=== PATIENT | female | born 1970 | race Caucasian/White ===

== ENCOUNTER 2016-09-15 20:22 | Emergency (ER) | payer OTHER, BC ==
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
[2016-09-15] MEDS ORDERED: IBUPROFEN 600 MG TABLET PO ONE (21:06)
--- NOTE | 2016-09-18 09:30 | RADIOLOGY REPORT ---
EXAM: LEFT ANKLE HISTORY: INJURY. TECHNIQUE: Three views of the left ankle were provided without comparison studies. FINDINGS: There is no radiographic evidence of a fracture or dislocation of the left ankle. No significant soft tissue abnormalities are visualized. IMPRESSION: NO RADIOGRAPHIC EVIDENCE OF AN ACUTE PROCESS INVOLVING THE LEFT ANKLE. JOB NUMBER: [id number] MTDD
--- NOTE | 2016-09-18 09:33 | RADIOLOGY REPORT ---
EXAM: LEFT KNEE, THREE VIEWS HISTORY: PATIENT HAS A HISTORY OF INJURY. TECHNIQUE: Three views of the left knee were provided without comparison studies. FINDINGS: There is no radiographic evidence of a fracture or dislocation of the left knee. No significant soft tissue abnormalities are visualized. Moderate suprapatellar bursal effusion is noted. IMPRESSION: MODERATE SUPRAPATELLAR BURSAL EFFUSION IS NOTED WITHOUT RADIOGRAPHIC EVIDENCE OF A FRACTURE OR DISLOCATION OF THE LEFT KNEE. IF THERE IS CLINICAL CONCERN FOR LIGAMENTOUS INJURY THEN AN MRI OF THE LEFT KNEE CAN BE OBTAINED FOR FURTHER EVALUATION. JOB NUMBER: [id number] [facility]
== END 2016-09-15 22:31 | disposition home or self-care (01) ==
LOC: ER 20:22
DX: S80.02XA Contusion of left knee, initial encounter (principal); S90.02XA Contusion of left ankle, initial encounter; V86.69XA Passenger of other special all-terrain or other off-road motor vehicle injured in nontraffic accident, initial encounter; Y92.007 Garden or yard of unspecified non-institutional (private) residence as the place of occurrence of the external cause
CPT/HCPCS: 99283; 99284

== ENCOUNTER 2017-04-20 16:22 | Emergency (ER) | payer OTHER, BC ==
--- NOTE | 2017-04-20 16:41 | Emergency Department Record ---
History of Present Illness - General Chief Complaint: Chest Pain Stated Complaint: CHEST PAINS/BLOOD CLOT ? SENT BY Time Seen by Provider: 04/20/17 16:33 Source: Patient Mode of Arrival: Ambulatory Limitations: No limitations - History of Present Illness Initial Comments: The patient is here due to CP for about one day. She describes it as an aching heaviness retrosternal that intermittently radiates to her back. She denies any SOB, IGNACIO, sweating, nausea, or lightheadedness. The patient denies any worsening pain with exertion or deep breaths or eating. She did see her PCP this afternoon and he did an EKG and sent her to the ER for a lung scan to make sure she has no clots. The patient has no cardiac risk factors. MD Complaint: Chest pain Onset/Timin -: Days(s) Onset: During rest Pain Location: Substernal, Left chest Pain Radiation: Back Severity: Moderate Severity scale (1-10): 4 Quality: Aching, Heaviness - Related Data Home Medications Medication Instructions Recorded Confirmed Last Taken Cholecalciferol (Vitamin D3) 2,000 unit PO DAILY 04/20/17 04/20/17 1 Day Ago [Vitamin D3] ~04/19/17 Allergies Allergy/AdvReac Type Severity Reaction Status Date / Time Penicillins [PENICILLINS] Allergy Unknown HIVES Verified 04/20/17 16:33 Travel Screening - Travel/Exposure Within Last 30 Days Have you traveled within the last 30 days?: No - Travel/Exposure Within Last Year Have you traveled outside the [place] in the last year?: No - Additonal Travel Details Have you been exposed to anyone with a communicable illness?: No - Travel Symptoms Symptom Screening: None Review of Systems Constitutional: Denies: Chills, Fever Eyes: Denies: Eye discharge ENT: Denies: Congestion Respiratory: Denies: Cough, Dyspnea Past Medical History - SOCIAL HISTORY Smoking Status: Never smoker Alcohol Use: None, Rare Drug Use: None - RESPIRATORY Hx Respiratory Disorders: No - CARDIOVASCULAR Hx Cardio Disorders: Yes Comment:: murmur - NEURO Hx Neuro Disorders: Yes Comment:: MS - GI Hx GI Disorders: No - Hx Genitourinary Disorders: No - ENDOCRINE Hx Endocrine Disorders: Yes Hx Thyroid Disease: Yes - MUSCULOSKELETAL Hx Musculoskeletal Disorders: No - PSYCH Hx Psych Problems: No - HEMATOLOGY/ONCOLOGY Hx Hematology/Oncology Disorders: No Family Medical History Any Significant Family History?: Yes Hx Heart Disease: Father, Grandparents Hx Stroke: Grandparents Physical Exam - General General Appearance: Alert, Oriented x3, Cooperative, No acute distress - Head Head exam: Atraumatic, Normocephalic, Normal inspection - Eye Eye exam: Normal appearance, PERRL - Neck Neck exam: Normal inspection, Full ROM. negative: Tenderness - Respiratory Respiratory exam: Normal lung sounds bilaterally. negative: Respiratory distress - Cardiovascular Cardiovascular Exam: Regular rate, Normal rhythm, Normal heart sounds. negative : Diastolic murmur, Systolic murmur - GI/Abdominal GI/Abdominal exam: Soft, Normal bowel sounds. negative: Tenderness - Extremities Extremities exam: Normal inspection, Full ROM, Normal capillary refill, Other ( Radial pulses equal and strong bilaterally.). negative: Calf tenderness, Pedal edema, Tenderness - Neurological Neurological exam: Alert. negative: Motor sensory deficit - Skin Skin exam: negative: Rash Course Vital Signs 04/20/17 16:25 Temperature 98.5 F Pulse Rate 74 Respiratory 16 Rate Blood Pressure 139/82 Pulse Ox 100 - Reevaluation(s) Reevaluation #1: The patient is resting very comfortably and denies any new pain or discomfort. I did explain to her that her workup is all neg. The Carafate did not take care of the patient's pain so we will try some IV Toradol. She denies any SOB, IGNACIO, or sweating and states the pain is very mild presently. 04/20/17 17:39 Reevaluation #2: The patient is resting comfortably and does feel better after the Toradol. She denies any trouble breathing, back pain, numbness, tingling, or weakness. I did explain to her that her test results are all WNL's. I strongly doubt any PE issues due to the fact the patient has no risk factors, is Wells Criteria: Low, and PERC Neg. Additionally her D-Dimer is neg. I also doubt any cardiac etiology due to the fact her pain is not exertional, EKG normal and lab work normal. I did discuss the issues with the patient and despite the fact her tests are normal, I am not clear as to the cause of the pain and I still did recommend a short stay hospital admission for a cardiac echo and stress test. The patient is reluctant to stay in the hospital and is refusing the workup and admission. I explained to the patient that the risks of leaving are that she could go home and have worsening pain, an SC, CVA, become disabled and even . The patient presently has proper decision making capacity and still elects to go home. She understands we cannot be held liable for NOT admitting her to the hospital and also understands she is to return for any worsening problems. I did also discuss the case with the patient's PCP Dr. Hoang and he will see the patient Sunday morning at 10:30 am and will facilitate a cardiac evaluation. 04/20/17 18:03 04/20/17 18:06 Medical Decision Making - Data Complexity MDM Data: Labs Ordered and/or Reviewed, X-Ray Ordered and/or Reviewed, EKG Ordered and/or Reviewed - Lab Data Result diagrams: 04/20/17 16:36 04/20/17 16:36 - EKG Data -: EKG Interpreted by Me EKG: No Acute Changes, Normal EKG - Radiology Data Radiology results: Report reviewed (CXR: Neg.) Disposition Disposition: Discharge Clinical Impression: Chest pain, atypical Disposition: Home, Self-Care Condition: (2) Stable Instructions: Chest Pain (ED) Additional Instructions: Please take an aspirin daily for the next 3 days and take your home pain medicines as needed. Please see your PCP on Sunday as planned in 3 days. Return to the ER for any worsening pain, change in character of the pain, any sweating or trouble breathing. Forms: Patient Portal Access Time of Disposition: 18:12 Quality - Quality Measures Quality Measures: N/A - Blood Pressure Screening View Details: Yes Does Patient Have Any of the Following: No Blood Pressure Classification: Pre-Hypertensive BP Reading Systolic Measurement: 130 Diastolic Measurement: 78 Screening for High Blood Pressure: < Normal BP, F/U Not Required > [G8783]
[2017-04-20] MEDS ORDERED: ASPIRIN 325 MG TABLET PO ONE (16:48)
[2017-04-20 17:02] LABS: BASO % 0.6 % (0-6); EOS % 3.2 % (0-6); GRAN % 33.9 % (47-80); HEMATOCRIT 39.5 % (35.0-47.0); HEMOGLOBIN 12.8 gm/dl (11.6-16.0); LYMPH % 46.9 % (16-45); MEAN CELL VOLUME 92.5 fl (81-97); MEAN CORPUSCULAR HGB CONC 32.4 g/dl (32-36); MEAN PLATELET VOLUME 11.3 fl (7.4-10.4); MONO % 15.4 % (0-9); PLATELET COUNT 323 K/uL (130-400); RED BLOOD COUNT 4.27 M/uL (3.80-5.40); RED CELL DISTRIBUTION WIDTH 13.4 % (11.5-14.5)
[2017-04-20] MEDS ORDERED: SUCRALFATE 1 G/10 ML UD PO ONE (17:03)
[2017-04-20 17:12] LABS: BLOOD UREA NITROGEN 11 mg/dL (6-20); CREATININE 0.5 mg/dL (0.5-0.9); EST GLOMERULAR FILTRATION RATE > 60 mL/min
[2017-04-20 17:14] LABS: INR 0.93; PARTIAL THROMBOPLASTIN TIME 26.5 SECONDS (24.5-39.1)
[2017-04-20 17:15] LABS: GLUCOSE,RANDOM 93 mg/dL (74-109)
[2017-04-20 17:18] LABS: CREATINE PHOSPHOKINASE 43 U/L (26-192)
[2017-04-20 17:21] LABS: CKMB 1.3 ng/mL (<3.77)
[2017-04-20 17:28] LABS: THYROID STIMULATING HORMONE 1.31 uIU/mL (0.270-4.20)
[2017-04-20] MEDS ORDERED: KETOROLAC 30 MG/ML VIAL IVP ONE (17:39)
--- NOTE | 2017-04-21 10:21 | RADIOLOGY REPORT ---
DATE: 04/20/2017. EXAM: TWO VIEWS OF THE CHEST. HISTORY: Chest pain. TECHNIQUE: Frontal and lateral views of the chest. COMPARISON: Prior chest dated 06/28/2007. FINDINGS: The heart size is normal. The lungs are clear. No pneumothorax. IMPRESSION: NEGATIVE CHEST. JOB NUMBER: [id number] MTDD
== END 2017-04-20 18:25 | disposition home or self-care (01) ==
LOC: ER 16:22
DX: R07.2 Precordial pain (principal)
CPT/HCPCS: 71020; 80048; 82550; 82553; 84443; 84484; 85025; 85379; 85610; 85730; 93005; 93010; 96374; 99284; J1885

== ENCOUNTER 2018-07-18 19:28 | Observation (INO) | payer OTHER ==
[2018-07-18] MEDS ORDERED: KETOROLAC 30 MG/ML VIAL IVP ONE (19:51)
[2018-07-18 20:07] LABS: HEMATOCRIT 41.4 % (35.0-47.0); HEMOGLOBIN 13.5 gm/dl (11.6-16.0); MEAN CELL VOLUME 91.2 fl (81-97); MEAN CORPUSCULAR HEMOGLOBIN 29.7 pg (27-33); MEAN CORPUSCULAR HGB CONC 32.6 g/dl (32-36); MEAN PLATELET VOLUME 10.8 fl (7.4-10.4); PLATELET COUNT 320 K/uL (130-400); RED BLOOD COUNT 4.54 M/uL (3.80-5.40); RED CELL DISTRIBUTION WIDTH 13.3 % (11.5-14.5); WHITE BLOOD COUNT W/O DIFF 5.8 K/uL (4.2-12.2)
[2018-07-18 20:19] LABS: BLOOD UREA NITROGEN 10 mg/dL (6-20)
[2018-07-18 20:20] LABS: CREATININE 0.7 mg/dL (0.5-0.9); EST GLOMERULAR FILTRATION RATE > 60 mL/min; TOTAL PROTEIN 7.8 g/dL (6.6-8.7)
[2018-07-18 20:22] LABS: GLUCOSE,RANDOM 114 mg/dL (74-109)
[2018-07-18 20:24] LABS: INFLUENZA A NEGATIVE (NEGATIVE); INFLUENZA B NEGATIVE (NEGATIVE)
[2018-07-18 20:25] LABS: ALB/GLOB RATIO 1.3 (1.1-1.8); ALBUMIN 4.4 g/dL (4.0-5.0); ALKALINE PHOSPHATASE 109 U/L (35-104); ALT/SGPT 22 U/L (<33); AST/SGOT 21 U/L (10.0-35.0)
[2018-07-18] MEDS ORDERED: PROMETHAZINE W/CODEINE 10ML UD PO ONE (21:01)
[2018-07-18] MEDS ORDERED: IPRATROPIUM/ALBUTEROL (0.5MG/3MG) NEB INH ONE (21:01)
--- NOTE | 2018-07-18 21:16 | Emergency Department Record ---
History of Present Illness - General Chief Complaint: Chest Pain Stated Complaint: CHEST PAIN Time Seen by Provider: 07/18/18 19:44 Source: Patient Mode of Arrival: Wheelchair Limitations: No limitations - History of Present Illness Initial Comments: pt has been sick since sunday with coughing and congestion. she went to [facility] this am and had a cxr and was started on a zpak. tonight she feels worse and has pain on the r side of her chest that gets worse w inspiration and coughing. cough is nonproductive MD Complaint: Chest pain Onset/Timin -: Days(s) Pain Location: Right chest Severity scale (1-10): 9 Quality: Sharp Consistency: Constant, Getting worse Improves With: Nothing Worsens With: Inspiration, Other Context: Recent illness Other Symptoms: Cough - Related Data Allergies Allergy/AdvReac Type Severity Reaction Status Date / Time Penicillins [PENICILLINS] Allergy Unknown HIVES Verified 07/18/18 19:33 Travel Screening - Travel/Exposure Within Last 30 Days Have you traveled within the last 30 days?: No - Travel Symptoms Symptom Screening: None Review of Systems Reviewed: No additional complaints except as noted below Constitutional: Reports: As per HPI. Denies: Chills, Fever, Malaise, Night sweats, Weakness, Weight change Eyes: Reports: As per HPI. Denies: Eye discharge, Eye pain, Photophobia, Vision change ENT: Reports: As per HPI, Congestion. Denies: Dental pain, Ear pain, Epistaxis , Hearing loss, Throat pain Respiratory: Reports: As per HPI, Cough, Dyspnea. Denies: Hemoptysis, Stridor, Wheezes Cardiovascular: Reports: As per HPI. Denies: Arrhythmia, Chest pain, Dyspnea on exertion, Edema, Murmurs, Orthopnea, Palpitations, Paroxysmal nocturnal dyspnea, Rheumatic Fever, Syncope Endocrine: Reports: As per HPI. Denies: Fatigue, Heat or cold intolerance, Polydipsia, Polyuria Gastrointestinal: Reports: As per HPI. Denies: Abdominal pain, Constipation, Diarrhea, Hematemesis, Hematochezia, Melena, Nausea, Vomiting Genitourinary: Reports: As per HPI. Denies: Abnormal menses, Discharge, Dyspareunia, Dysuria, Frequency, Hematuria, Incontinence, Retention, Urgency Musculoskeletal: Reports: As per HPI. Denies: Arthralgia, Back pain, Gout, Joint swelling, Myalgia, Neck pain Skin: Reports: As per HPI. Denies: Bruising, Change in color, Change in hair/ nails, Lesions, Pruritus, Rash Neurological: Reports: As per HPI. Denies: Abnormal gait, Confusion, Headache, Numbness, Paresthesias, Seizure, Tingling, Tremors, Vertigo, Weakness Psychiatric: Reports: As per HPI. Denies: Anxiety, Auditory hallucinations, Depression, Homicidal thoughts, Suicidal thoughts, Visual hallucinations Hematological/Lymphatic: Reports: As per HPI. Denies: Anemia, Blood Clots, Easy bleeding, Easy bruising, Swollen glands Past Medical History - SOCIAL HISTORY Smoking Status: Never smoker - RESPIRATORY Hx Respiratory Disorders: No - CARDIOVASCULAR Hx Cardio Disorders: Yes Comment:: murmur - NEURO Hx Neuro Disorders: Yes Comment:: MS - GI Hx GI Disorders: No - Hx Genitourinary Disorders: No - ENDOCRINE Hx Endocrine Disorders: Yes Hx Thyroid Disease: Yes - MUSCULOSKELETAL Hx Musculoskeletal Disorders: No - PSYCH Hx Psych Problems: No - HEMATOLOGY/ONCOLOGY Hx Hematology/Oncology Disorders: No Family Medical History Any Significant Family History?: Yes Hx Heart Disease: Father, Grandparents Hx Stroke: Grandparents Physical Exam - General General Appearance: Alert, Oriented x3, Cooperative, Mild distress - Head Head exam: Normal inspection - Eye Eye exam: Normal appearance, PERRL, EOMI Pupils: Normal accommodation - ENT ENT exam: Normal exam, Mucous membranes moist, Normal external ear exam, Normal orophraynx Ear exam: Normal external inspection. negative: External canal tenderness Nasal Exam: Normal inspection. negative: Discharge, Sinus tenderness Mouth exam: Normal external inspection, Tongue normal Teeth exam: Normal inspection. negative: Dental caries Throat exam: Normal inspection. negative: Tonsillar erythema, Tonsillar exudate - Neck Neck exam: Normal inspection, Full ROM. negative: Tenderness - Respiratory Respiratory exam: Normal lung sounds bilaterally. negative: Respiratory distress - Cardiovascular Cardiovascular Exam: Normal rhythm, Normal heart sounds, Tachycardia - GI/Abdominal GI/Abdominal exam: Soft, Normal bowel sounds. negative: Tenderness - Rectal Rectal exam: Deferred - exam: Deferred - Extremities Extremities exam: Normal inspection, Full ROM, Normal capillary refill. negative: Tenderness - Back Back exam: Reports: Normal inspection, Full ROM. Denies: Muscle spasm, Rash noted, Tenderness - Neurological Neurological exam: Alert, CN II-XII intact, Normal gait, Oriented X3 - Psychiatric Psychiatric exam: Normal affect, Normal mood - Skin Skin exam: Dry, Intact, Normal color, Warm Course Vital Signs 07/18/18 07/18/18 19:34 20:29 Temperature 99.0 F Pulse Rate 114 H Pulse Rate [ 94 H [facility] [employer] ] Respiratory 18 24 Rate Blood Pressure 136/90 Blood Pressure 123/82 [Left Arm] Pulse Ox 100 99 - Reevaluation(s) Reevaluation #1: 07/18/18 23:26 pt still does not feel well. pt intermittently desats to 89-90 Medical Decision Making - Lab Data Result diagrams: 07/18/18 19:45 07/18/18 19:45 Lab Results 07/18/18 07/18/18 07/18/18 Range/Units 19:45 19:45 19:45 WBC 5.8 (4.2-12.2) K/uL RBC 4.54 (3.80-5.40) M/uL Hgb 13.5 (11.6-16.0) gm/dl Hct 41.4 (35.0-47.0) % MCV 91.2 (81-97) fl MCH 29.7 (27-33) pg MCHC 32.6 (32-36) g/dl RDW 13.3 (11.5-14.5) % Plt Count 320 (130-400) K/uL MPV 10.8 H (7.4-10.4) fl Neutrophils % 50.0 (47-80) % Band Neutrophils % 0.0 (0-5) % Eosinophils % Not Reportable Basophils % Not Reportable Lymphocytes 30.0 (16-45) % Monocytes 19.0 H (0-9) % Basophils 0.0 (0-6) % Eosinophil Count 1.0 (0-6) % D-Dimer 0.47 (0-0.59) mg/L FEU Sodium 142 (136-145) mmol/L Potassium 3.7 (3.4-4.5) mmol/L Chloride 101 (98-107) mmol/L Carbon Dioxide 26.0 (22-29) mmol/L Anion Gap 15.0 (7-16) BUN 10 (6-20) mg/dL Creatinine 0.7 (0.5-0.9) mg/dL Estimated GFR > 60 mL/min Random Glucose 114 H (74-109) mg/dL Calcium 9.2 (8.6-10.0) mg/dL Total Bilirubin 0.20 (0.2-1.0) mg/dL AST 21 (10.0-35.0) U/L ALT 22 (<33) U/L Alkaline Phosphatase 109 H (35-104) U/L Troponin T < 0.010 (0-0.010) ng/mL Total Protein 7.8 (6.6-8.7) g/dL Albumin 4.4 (4.0-5.0) g/dL Globulin 3.4 (1.4-4.8) gm/dL Albumin/Globulin Ratio 1.3 (1.1-1.8) Influenza Type A Ag (NEGATIVE) Influenza Type B Ag (NEGATIVE) 07/18/18 07/18/18 Range/Units 19:45 19:52 WBC (4.2-12.2) K/uL RBC (3.80-5.40) M/uL Hgb (11.6-16.0) gm/dl Hct (35.0-47.0) % MCV (81-97) fl MCH (27-33) pg MCHC (32-36) g/dl RDW (11.5-14.5) % Plt Count (130-400) K/uL MPV (7.4-10.4) fl Neutrophils % (47-80) % Band Neutrophils % (0-5) % Eosinophils % Basophils % Lymphocytes (16-45) % Monocytes (0-9) % Basophils (0-6) % Eosinophil Count (0-6) % D-Dimer (0-0.59) mg/L FEU Sodium (136-145) mmol/L Potassium (3.4-4.5) mmol/L Chloride (98-107) mmol/L Carbon Dioxide (22-29) mmol/L Anion Gap (7-16) BUN (6-20) mg/dL Creatinine (0.5-0.9) mg/dL Estimated GFR mL/min Random Glucose (74-109) mg/dL Calcium (8.6-10.0) mg/dL Total Bilirubin (0.2-1.0) mg/dL AST (10.0-35.0) U/L ALT (<33) U/L Alkaline Phosphatase (35-104) U/L Troponin T Cancelled (0-0.010) ng/mL Total Protein (6.6-8.7) g/dL Albumin (4.0-5.0) g/dL Globulin (1.4-4.8) gm/dL Albumin/Globulin Ratio (1.1-1.8) Influenza Type A Ag Negative (NEGATIVE) Influenza Type B Ag Negative (NEGATIVE) Disposition Disposition: Admit Clinical Impression: Hypoxia, Pleurisy Reactive airway disease with acute exacerbation Qualifiers: Asthma severity: moderate Asthma persistence: persistent Qualified Code(s): J45.41 - Moderate persistent asthma with (acute) exacerbation Disposition: Still a Patient at [facility] Decision to Admit: Admit from ER Decision to Admit Date: 07/18/18 Decision to Admit Time: 23:28 Forms: Patient Portal Access Quality - Quality Measures Quality Measures: N/A - Blood Pressure Screening Does Patient Have Any of the Following: No Blood Pressure Classification: Hypertensive Reading Systolic Measurement: 136 Diastolic Measurement: 90 Screening for High Blood Pressure: < First Hypertensive BP, F/U Documented > [ G8950] First Hypertensive Follow-up Interventions: Follow-up with rescreen GT 1 day and LT 4 weeks.
[2018-07-18] MEDS ORDERED: METHYLPREDNISOLONE PF 125MG/VIAL IVP ONE (21:42)
[2018-07-18] MEDS ORDERED: MORPHINE SULFATE 10 MG/ML VIAL IVP ONE (23:25)
[2018-07-18] MEDS ORDERED: ALBUTEROL SULFATE (0.083%) 2.5 MG/3 ML NEB INH PRN (23:59)
[2018-07-18] MEDS ORDERED: [UNRECOGNIZED DRUG - OTHER] INJ SCH (23:59)
[2018-07-18] MEDS ORDERED: ALBUMIN INJ SCH (23:59)
[2018-07-18] MEDS ORDERED: MORPHINE SULFATE 10 MG/ML VIAL IVP PRN (23:59)
[2018-07-18] MEDS ORDERED: ONDANSETRON HCL IV 4 MG/2 ML VIAL IVP PRN (23:59)
[2018-07-18] MEDS ORDERED: ACETAMINOPHEN 500 MG TABLET PO PRN (23:59)
[2018-07-18] MEDS ORDERED: TEMAZEPAM 15 MG CAPSULE PO PRN (23:59)
[2018-07-19] MEDS: METHYLPREDNISOLONE PF 125MG/VIAL IVP SCH ×2 (00:13→06:40)
[2018-07-19] MEDS: AZITHROMYCIN 250 MG TABLET PO SCH ×2 (00:14→22:44)
[2018-07-19] MEDS: LEVOTHYROXINE SODIUM 75 MCG TABLET PO SCH (06:39)
[2018-07-19] MEDS ORDERED: HYDROCODONE/APAP 5/325MG TABLET PO ONE (06:48)
--- NOTE | 2018-07-19 08:51 | RADIOLOGY REPORT ---
EXAM: CHEST, TWO VIEWS HISTORY: COUGH AND CONGESTION, RIGHT SIDED CHEST PAIN. TECHNIQUE: PA and lateral views of the chest were obtained. Comparison: PA and lateral chest performed earlier today on 07/18/18 at 11:40 a.m. Prior study not as yet available within PACS. FINDINGS: The heart size is normal, unchanged. No definite acute infiltrate seen to have developed since earlier this morning. No pleural effusion or pneumothorax evident. IMPRESSION: THE CHEST CONTINUES TO APPEAR ESSENTIALLY NEGATIVE WITH NO APPRECIABLE CHANGE FROM EARLIER TODAY. J[facility]BER: [id number] [facility]
[2018-07-19] MEDS ORDERED: METHYLPREDNISOLONE SOD 40MG/VIAL IVP ONE (09:23)
[2018-07-19] MEDS ORDERED: KETOROLAC 30 MG/ML VIAL IVP ONE (09:25)
[2018-07-19] MEDS: HYDROCODONE/APAP 5/325MG TABLET PO PRN ×2 (09:52→22:44)
[2018-07-19] MEDS: ASPIRIN 325 MG TAB ENTERIC-COATED PO SCH (09:53)
--- NOTE | 2018-07-19 10:55 | History & Physical ---
History of Present Illness - Date of Service Date of Service for History & Physical: 07/19/18 - History of Present Illness Admitting Diagnosis: reactive airway with hypoxia and pleurisy History of Present Illness: Mrs. Dominique is a 47 year-old female who presented to the ED the evening of with complaint of feeling ill for 4 days with cough and congestion. She was seen in [facility] that morning, chest xray was negative, and she was prescribed a xpak. She reported feeling worse that night with pain on the right side of her chest that worsened with inspiration and cough. Cough is nonproductive. Her history includes: asthma as a child, MS, heart murmur, and hypothyroidism. In the ED, her vitals were: BP 136/90, HR 114, RR 18, 100% on room air, and T 99.0F. She did intermittently desat to 89-90%. Labs were unremarkable (CBC, CMP, d-dimer, neg troponins). Repeat chest xray was negative. Influenza was negative. She was admitted observation for reactive airway disease and right- sided pleurisy. 07/19/18: Pt. is resting in bed, she reports much improved work of breathing. She has remained above 92% on room air. She does c/o right-sided pain from her likely pleurisy. [place] 5/325 was administered. I spoke with pt. regarding the nature of her pleurisy and explained that steroid and scheduled NSAID will help more with underlying inflammatory pain. Plan to change steroid to PO and try ibuprofen. Continue albuterol and duo nebs while awake. Will plan to d/c home this afternoon if pt. continues to improve. PCP: Dr. Hoang Travel Screening - Travel/Exposure Within Last 30 Days Have you traveled within the last 30 days?: No - Travel/Exposure Within Last Year Have you traveled outside the [place] in the last year?: No - Additonal Travel Details Have you been exposed to anyone with a communicable illness?: Yes Exposure Details:: exposure to co-worker with RSV, pneumonia - Travel Symptoms Symptom Screening: Fever (Subjective), Fatigue, Chills Review of Systems Constitutional: Reports: As per HPI. Denies: Chills, Fever, Malaise, Night sweats, Weakness, Weight change Eyes: Reports: As per HPI. Denies: Eye discharge, Eye pain, Photophobia, Vision change ENT: Reports: As per HPI, Congestion. Denies: Dental pain, Ear pain, Epistaxis , Hearing loss, Throat pain Respiratory: Reports: As per HPI, Cough, Dyspnea. Denies: Hemoptysis, Stridor, Wheezes Cardiovascular: Reports: As per HPI. Denies: Arrhythmia, Chest pain, Dyspnea on exertion, Edema, Murmurs, Orthopnea, Palpitations, Paroxysmal nocturnal dyspnea, Rheumatic Fever, Syncope Endocrine: Reports: As per HPI. Denies: Fatigue, Heat or cold intolerance, Polydipsia, Polyuria Gastrointestinal: Reports: As per HPI. Denies: Abdominal pain, Constipation, Diarrhea, Hematemesis, Hematochezia, Melena, Nausea, Vomiting Genitourinary: Reports: As per HPI. Denies: Abnormal menses, Discharge, Dyspareunia, Dysuria, Frequency, Hematuria, Incontinence, Retention, Urgency Musculoskeletal: Reports: As per HPI. Denies: Arthralgia, Back pain, Gout, Joint swelling, Myalgia, Neck pain Skin: Reports: As per HPI. Denies: Bruising, Change in color, Change in hair/ nails, Lesions, Pruritus, Rash Neurological: Reports: As per HPI. Denies: Abnormal gait, Confusion, Headache, Numbness, Paresthesias, Seizure, Tingling, Tremors, Vertigo, Weakness Psychiatric: Reports: As per HPI. Denies: Anxiety, Auditory hallucinations, Depression, Homicidal thoughts, Suicidal thoughts, Visual hallucinations Hematological/Lymphatic: Reports: As per HPI. Denies: Anemia, Blood Clots, Easy bleeding, Easy bruising, Swollen glands Past Medical History - SOCIAL HISTORY Smoking Status: Never smoker Alcohol Use: Rare Drug Use: None - RESPIRATORY Hx Respiratory Disorders: Yes Hx Asthma: Yes (in childhood) - CARDIOVASCULAR Hx Cardio Disorders: Yes Comment:: murmur - NEURO Hx Neuro Disorders: Yes Comment:: Multiple Sclerosis- diagnosed 2006 - GI Hx GI Disorders: No - Hx Genitourinary Disorders: No - ENDOCRINE Hx Endocrine Disorders: Yes Hx Diabetes: No Hx Thyroid Disease: Yes - MUSCULOSKELETAL Hx Musculoskeletal Disorders: No - PSYCH Hx Psych Problems: No - HEMATOLOGY/ONCOLOGY Hx Hematology/Oncology Disorders: No Family Medical History Any Significant Family History?: Yes Hx Heart Disease: Father, Grandparents Hx Stroke: Grandparents H&P Meds/Allergies - Allergies Allergies: Allergies Allergy/AdvReac Type Severity Reaction Status Date / Time Penicillins [PENICILLINS] Allergy Unknown HIVES Verified 07/18/18 19:33 - Home Medications Home Medications Medication Instructions Recorded Confirmed Last Taken Albuterol Sulfate [Albuterol 2 inh IH Q4H PRN 07/18/18 07/18/18 07/18/18 Sulfate Hfa] Benzonatate [Tessalon] 2 cap PO Q8H PRN 07/18/18 07/18/18 Unknown Fluticasone Propionate [Flonase] 2 spray EACH NARES DAILY 07/18/18 07/18/18 Unknown - Active Medications Active Medications: Current Medications Acetaminophen (Tylenol 500mg Tab) 1,000 mg PO Q6H PRN PRN Reason: PAIN - MILD(1-4)/FEVER Hydrocodone Bitart/Acetaminophen ([place] 5mg/325mg) 1 each PO Q4H PRN PRN Reason: PAIN - MOD TO SEVERE (5-10) Last Admin: 07/19/18 09:52 Dose: 1 each Albuterol Sulfate (Albuterol Sulfate) 2.5 mg INH RESP.Q4H.WA PRN PRN Reason: DIFFICULTY IN BREATHING Albuterol/Ipratropium (Duoneb) 3 ml INH RESP.Q6H PRN PRN Reason: WHEEZING Aspirin (Ecotrin (Ec)) 325 mg PO DAILY [facility] Last Admin: 07/19/18 09:53 Dose: 325 mg Azithromycin (Zithromax) 250 mg PO QHS [facility] Last Admin: 07/19/18 00:14 Dose: Not Given Levothyroxine Sodium (Synthroid) 75 mcg PO DAILYTHY [facility] Last Admin: 07/19/18 06:39 Dose: 75 mcg Methylprednisolone Sodium Succinate (Solu-Medrol) 60 mg IVP Q8H [facility] Last Admin: 07/19/18 06:40 Dose: 60 mg Morphine Sulfate (Morphine Sulfate) 2 mg IVP Q4H PRN PRN Reason: PAIN - MILD TO MODERATE (1-7) Ondansetron HCl (Zofran) 4 mg IVP Q8H PRN PRN Reason: NAUSEA Temazepam (Restoril) 15 mg PO QHS PRN PRN Reason: INSOMNIA Physical Exam - Vital Signs Vital Signs: Vital Signs - Last 24 Hrs Temp Pulse Pulse Resp BP BP Pulse Ox 07/19/18 07:45 98.6 F 77 16 107/60 98 07/19/18 06:15 99 07/19/18 01:59 98.9 F 100 H 18 110/63 97 07/18/18 23:59 99.3 F 92 H 18 107/68 98 07/18/18 23:51 92 H 16 121/75 96 07/18/18 23:34 102 H 20 07/18/18 23:11 98.5 F 07/18/18 22:54 100 H 18 122/73 94 L 07/18/18 21:36 98 H 16 95 07/18/18 21:35 94 H 26 H 89 L 07/18/18 21:13 108 H 18 113/79 98 07/18/18 21:06 100 H 18 98 07/18/18 20:29 94 H 24 123/82 99 07/18/18 19:34 99.0 F 114 H 18 136/90 100 - General General Appearance: Alert, Oriented x3, Cooperative, No acute distress Limitations: No limitations - Head Head exam: Normal inspection - Eye Eye exam: Normal appearance, PERRL, EOMI Pupils: Normal accommodation - ENT ENT exam: Normal exam, Mucous membranes moist, Normal external ear exam, Normal orophraynx Ear exam: Normal external inspection. negative: External canal tenderness Nasal Exam: Normal inspection. negative: Discharge, Sinus tenderness Mouth exam: Normal external inspection, Tongue normal Teeth exam: Normal inspection. negative: Dental caries Throat exam: Normal inspection. negative: Tonsillar erythema, Tonsillar exudate - Neck Neck exam: Normal inspection, Full ROM. negative: Tenderness - Respiratory Respiratory exam: Normal lung sounds bilaterally. negative: Respiratory distress - Cardiovascular Cardiovascular Exam: Normal rhythm, Normal heart sounds, Tachycardia - GI/Abdominal GI/Abdominal exam: Soft, Normal bowel sounds. negative: Tenderness - Rectal Rectal exam: Deferred - exam: Deferred - Extremities Extremities exam: Normal inspection, Full ROM, Normal capillary refill. negative: Tenderness - Back Back exam: Reports: Normal inspection, Full ROM. Denies: Muscle spasm, Rash noted, Tenderness - Neurological Neurological exam: Alert, CN II-XII intact, Normal gait, Oriented X3 - Psychiatric Psychiatric exam: Normal affect, Normal mood - Skin Skin exam: Dry, Intact, Normal color, Warm Results - Labs Result Diagrams: 07/18/18 19:45 02/28/19 19:45 Labs Last 24 Hours: Laboratory Results - last 24 hr 07/18/18 07/18/18 07/18/18 19:45 19:45 19:45 WBC 5.8 RBC 4.54 Hgb 13.5 Hct 41.4 MCV 91.2 MCH 29.7 MCHC 32.6 RDW 13.3 Plt Count 320 MPV 10.8 H Neutrophils % 50.0 Band Neutrophils % 0.0 Eosinophils % Not Reportable Basophils % Not Reportable Lymphocytes 30.0 Monocytes 19.0 H Basophils 0.0 Eosinophil Count 1.0 D-Dimer 0.47 Sodium 142 Potassium 3.7 Chloride 101 Carbon Dioxide 26.0 Anion Gap 15.0 BUN 10 Creatinine 0.7 Estimated GFR > 60 Random Glucose 114 H Calcium 9.2 Total Bilirubin 0.20 AST 21 ALT 22 Alkaline Phosphatase 109 H CK-MB (CK-2) Troponin T < 0.010 Total Protein 7.8 Albumin 4.4 Globulin 3.4 Albumin/Globulin Ratio 1.3 Influenza Type A Ag Influenza Type B Ag 07/18/18 07/18/18 07/19/18 19:45 19:52 06:25 WBC RBC Hgb Hct MCV MCH MCHC RDW Plt Count MPV Neutrophils % Band Neutrophils % Eosinophils % Basophils % Lymphocytes Monocytes Basophils Eosinophil Count D-Dimer Sodium Potassium Chloride Carbon Dioxide Anion Gap BUN Creatinine Estimated GFR Random Glucose Calcium Total Bilirubin AST ALT Alkaline Phosphatase CK-MB (CK-2) Troponin T Cancelled < 0.010 Total Protein Albumin Globulin Albumin/Globulin Ratio Influenza Type A Ag Negative Influenza Type B Ag Negative 07/19/18 06:25 WBC RBC Hgb Hct MCV MCH MCHC RDW Plt Count MPV Neutrophils % Band Neutrophils % Eosinophils % Basophils % Lymphocytes Monocytes Basophils Eosinophil Count D-Dimer Sodium Potassium Chloride Carbon Dioxide Anion Gap BUN Creatinine Estimated GFR Random Glucose Calcium Total Bilirubin AST ALT Alkaline Phosphatase CK-MB (CK-2) 1.1 Troponin T Total Protein Albumin Globulin Albumin/Globulin Ratio Influenza Type A Ag Influenza Type B Ag - Imaging and Cardiology Chest x-ray Status: Report reviewed (negative) VTE H&P Assessment - Risk for VTE Risk for VTE: Yes Risk Level: Low Risk Assessment Date: 07/19/18 Risk Assessment Time: 10:57 VTE Orders Placed or Will Be Placed: Yes Plan - Detailed Diagnosis and Plan (1) Reactive airway disease with acute exacerbation Current Visit: Yes Status: Acute Qualifiers: Asthma severity: moderate Asthma persistence: persistent Qualified Code(s ): J45.41 - Moderate persistent asthma with (acute) exacerbation Base Code: J45.901 - UNSPECIFIED ASTHMA WITH (ACUTE) EXACERBATION Comment: 06/08: -Pt. has remained above 92% on room air -Continue duo nebs q4h and albuterol nebs q4h while awake -Will change iv solumedrol to prednisone today (2) Pleurisy Current Visit: Yes Status: Acute Base Code: R09.1 - PLEURISY Comment: 07/19: -Right-sides pleurisy -CXR normal -Continue IV solumedrol 60mg q8h and toradol 30mg IV administered, will change to PO today -[place] 5/325mg q4h prn severe pain (3) At risk for deep venous thrombosis Current Visit: Yes Status: Acute Base Code: Z91.89 - OTH PERSONAL RISK FACTORS, NOT ELSEWHERE CLASSIFIED Comment: 07/19/18: -At low risk for DVT -Will order lovenox 40mg sc if hospitalization greater than 24 hours (4) Full code status Current Visit: Yes Status: Acute Base Code: Z78.9 - OTHER SPECIFIED HEALTH STATUS Comment: 07/19/18: -Pt. is a full code
[2018-07-19] MEDS: IPRATROPIUM/ALBUTEROL (0.5MG/3MG) NEB INH PRN ×2 (11:35→19:02)
[2018-07-19] MEDS: PREDNISONE 20 MG TAB PO SCH ×2 (12:42→17:04)
[2018-07-19] MEDS: BENZONATATE 100 MG CAPSULE PO PRN (17:04)
[2018-07-19] MEDS: GUAIFENESIN 600 MG TABCR PO PRN ×2 (17:05→22:45)
[2018-07-19] MEDS: IBUPROFEN 600 MG TABLET PO PRN (20:07)
[2018-07-20] MEDS: BENZONATATE 100 MG CAPSULE PO PRN (00:10)
[2018-07-20] MEDS: IBUPROFEN 600 MG TABLET PO PRN (06:36)
[2018-07-20] MEDS: HYDROCODONE/APAP 5/325MG TABLET PO PRN ×3 (06:36→14:03)
[2018-07-20] MEDS: LEVOTHYROXINE SODIUM 75 MCG TABLET PO SCH (06:36)
[2018-07-20] MEDS: GUAIFENESIN 600 MG TABCR PO PRN (06:36)
[2018-07-20] MEDS: PREDNISONE 20 MG TAB PO SCH (08:03)
[2018-07-20] MEDS: ASPIRIN 325 MG TAB ENTERIC-COATED PO SCH (09:40)
[2018-07-20 13:18] LABS: BASO % 0.2 % (0-6); GRAN % 73.3 % (47-80); HEMATOCRIT 37.5 % (35.0-47.0); HEMOGLOBIN 11.7 gm/dl (11.6-16.0); LYMPH % 15.5 % (16-45); MEAN CELL VOLUME 94.2 fl (81-97); MEAN CORPUSCULAR HEMOGLOBIN 29.4 pg (27-33); MEAN CORPUSCULAR HGB CONC 31.2 g/dl (32-36); MEAN PLATELET VOLUME 11.3 fl (7.4-10.4); PLATELET COUNT 313 K/uL (130-400); RED BLOOD COUNT 3.98 M/uL (3.80-5.40); RED CELL DISTRIBUTION WIDTH 13.7 % (11.5-14.5); WHITE BLOOD COUNT W/O DIFF 12.5 K/uL (4.2-12.2)
--- NOTE | 2018-07-20 13:40 | Discharge Summary ---
Providers Discharge Summary Date: 07/20/18 Date of admission: 07/18/18 23:51 Expected Date of Discharge: 07/20/18 Attending physician: ITA OCHOA Primary care physician: LEANDRA GUZMÁN D.O. Physical Exam - Vital Signs Vital Signs: Vital Signs - Last 24 Hrs Temp Pulse Pulse Resp BP Pulse Ox 07/20/18 08:00 97.9 F 70 16 105/64 96 07/20/18 06:57 97.8 F 76 110/68 98 07/20/18 06:20 95 07/19/18 23:02 82 18 97 07/19/18 22:30 89 98 07/19/18 19:02 92 H 18 07/19/18 18:55 98.0 F 82 16 124/70 99 07/19/18 15:00 98.1 F 75 17 120/67 95 - General General Appearance: Alert, Oriented x3, Cooperative, No acute distress Limitations: No limitations - Head Head exam: Normal inspection - Eye Eye exam: Normal appearance, PERRL, EOMI Pupils: Normal accommodation - ENT ENT exam: Normal exam, Mucous membranes moist, Normal external ear exam, Normal orophraynx Ear exam: Normal external inspection. negative: External canal tenderness Nasal Exam: Normal inspection. negative: Discharge, Sinus tenderness Mouth exam: Normal external inspection, Tongue normal Teeth exam: Normal inspection. negative: Dental caries Throat exam: Normal inspection. negative: Tonsillar erythema, Tonsillar exudate - Neck Neck exam: Normal inspection, Full ROM. negative: Tenderness - Respiratory Respiratory exam: Normal lung sounds bilaterally. negative: Respiratory distress - Cardiovascular Cardiovascular Exam: Normal rhythm, Normal heart sounds, Tachycardia - GI/Abdominal GI/Abdominal exam: Soft, Normal bowel sounds. negative: Tenderness - Rectal Rectal exam: Deferred - exam: Deferred - Extremities Extremities exam: Normal inspection, Full ROM, Normal capillary refill. negative: Tenderness - Back Back exam: Reports: Normal inspection, Full ROM. Denies: Muscle spasm, Rash noted, Tenderness - Neurological Neurological exam: Alert, CN II-XII intact, Normal gait, Oriented X3 - Psychiatric Psychiatric exam: Normal affect, Normal mood - Skin Skin exam: Dry, Intact, Normal color, Warm Hospitalization - Hospitalization Admission Diagnosis: reactive airway with hypoxia and pleurisy - Problem List/Discharge Diagnosis (1) Reactive airway disease with acute exacerbation Current Visit: Yes Status: Acute Discharge Diagnosis: Asthma severity: moderate Asthma persistence: persistent Qualified Code(s ): J45.41 - Moderate persistent asthma with (acute) exacerbation Base Code: J45.901 - UNSPECIFIED ASTHMA WITH (ACUTE) EXACERBATION Comment: 07/09: -Pt. has remained above 96% on room air -Cough has improved in frequency -LS clear (2) Pleurisy Current Visit: Yes Status: Acute Base Code: R09.1 - PLEURISY Comment: 07/20: -Right-sided pleurisy -CXR normal -Continue prednisone 20mg bid, ibuprofen 800mg tid, azithromycin 250mg for 3 more days -[place] 5/325mg q4h prn severe pain (3) At risk for deep venous thrombosis Current Visit: Yes Status: Acute Base Code: Z91.89 - OTH PERSONAL RISK FACTORS, NOT ELSEWHERE CLASSIFIED Comment: 07/20/18: -At low risk for DVT (4) Full code status Current Visit: Yes Status: Acute Base Code: Z78.9 - OTHER SPECIFIED HEALTH STATUS Comment: 07/20/18: -Pt. is a full code - Hospitalization Course Disposition: Home, Self-Care Hospital Course: Mrs. Dominique is a 47 year-old female who presented to the ED the evening of with complaint of feeling ill for 4 days with cough and congestion. She was seen in [facility] that morning, chest xray was negative, and she was prescribed a xpak. She reported feeling worse that night with pain on the right side of her chest that worsened with inspiration and cough. Cough is nonproductive. Her history includes: asthma as a child, MS, heart murmur, and hypothyroidism. In the ED, her vitals were: BP 136/90, HR 114, RR 18, 100% on room air, and T 99.0F. She did intermittently desat to 89-90%. Labs were unremarkable (CBC, CMP, d-dimer, neg troponins). Repeat chest xray was negative. Influenza was negative. She was admitted observation for reactive airway disease and right- sided pleurisy. 07/19/18: Pt. is resting in bed, she reports much improved work of breathing. She has remained above 92% on room air. She does c/o right-sided pain from her likely pleurisy. [place] 5/325 was administered. I spoke with pt. regarding the nature of her pleurisy and explained that steroid and scheduled NSAID will help more with underlying inflammatory pain. Plan to change steroid to PO and try ibuprofen. Continue albuterol and duo nebs while awake. Will plan to d/c home this afternoon if pt. continues to improve. 07/20/18: Pt. is sitting up in bed, she reports slightly improved cough, however , pain now spread to left chest. Repeat EKG this am showed slight change- abnormal r-wave progression, early transition. Repeat EKG normal, intervals normal. Repeat troponin negative. Pt. reassured on findings. Will discharge home today. Continue azithromycin 250mg for 3 more days, prednisone 20mg bid for 3 more days, ibuprofen 600mg tid, and will provided norco 5/325mg for severe pain (3 days only). Recommended to continue albuterol hfa 1-2 puffs q4 hours, mucinex 1200mg bid for 3 days, and otc antihistamine and zantac. Instructed pt to f/u with her PCP in 3-5 days and return to the ED if symptoms worsen. PCP: Dr. 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 to return to normal level of activity) Discharge Medications - Discharge Medications Prescriptions: Guaifenesin [Mucinex] 1,200 mg PO BID PRN #20 tabcr PRN Reason: chest congestion Hydrocodone/APAP 5/325Mg [[place] 5Mg/325Mg] 1 each PO Q4H PRN #12 tab PRN Reason: Pain - Mod To Severe (5-10) Ibuprofen [Motrin 600Mg] 600 mg PO Q8H PRN #40 tablet PRN Reason: pain Prednisone [Prednisone 20Mg] 20 mg PO BIDWM #6 tab Home Medications: Ambulatory Orders Interferon Beta-1A/Albumin [Rebif 44 Mcg/0.5 ml Syringe] 44 mg INJ SUTUTH [Last Taken 07/14/18] Levothyroxine Sodium [Synthroid] 75 mcg PO DAILY 09/15/16 [Last Taken 1 Day Ago ~04/19/17] Albuterol Sulfate [Albuterol Sulfate Hfa] 2 inh IH Q4H PRN 07/18/18 [Last Taken 07/18/18] Benzonatate [Tessalon Perles] 2 cap PO Q8H PRN 07/18/18 [Last Taken Unknown] Fluticasone Propionate [Flonase] 2 spray EACH NARES DAILY 07/18/18 [Last Taken Unknown] Guaifenesin [Mucinex] 1,200 mg PO BID PRN #20 tabcr 07/20/18 [Last Taken Unknown ] Hydrocodone/APAP 5/325Mg [[place] 5Mg/325Mg] 1 each PO Q4H PRN #12 tab 07/20/18 [ Last Taken Unknown] Ibuprofen [Motrin 600Mg] 600 mg PO Q8H PRN #40 tablet 07/20/18 [Last Taken Unknown] Prednisone [Prednisone 20Mg] 20 mg PO BIDWM #6 tab 07/20/18 [Last Taken Unknown] Discharge Plan - Discharge Instructions Activity at Discharge: Increase Activity as Tolerated Diet at Discharge: Regular Diet Additional Instructions: Resume flonase- 1 spray per nostril twice daily Resume albuterol inhaler- 1-2 puffs every 4 hours for cough/chest tightness Resume zyrtec-D for congestion/stuffiness Start prednisone 20mg twice daily with meals (breakfast and lunch). First dose tomorrow morning Resume azithromycin 250mg (antibiotic). Take a dose tonight. Take ibuprofen 600mg every 8 hours for pain. Take with food. Use zantac 75mg daily for GERD symptoms (also will help to protect your stomach with steroid use) Use norco 5-235mg every 4 hours as needed for severe pain. Do not drive while taking. Follow up with your PCP in 3-5 days Return to the ED if your symptoms worsen, or for any chest pain. Quality Measures - Quality Measures Quality Measures: Documentation of Current Medications in Medical Record, Screening for High Blood Pressure and F/U Documented - Current Medications Quality Measure: Measure #130: Documentation of Current Medications Documentation of Current Medications: <Current Medications Documented/Reviewed> [G8427] - Blood Pressure Screening Quality Measure: Screening for High Blood Pressure and Follow-Up Documented Does Patient Have Any of the Following: No Blood Pressure Classification: Hypertensive Reading Systolic Measurement: 136 Diastolic Measurement: 90 Screening for High Blood Pressure: < Pre-Hypertensive BP, F/U Documented > [ G8950] Pre-Hypertensive Follow-up Interventions: Follow-up with rescreen every year. - Elder Abuse Suspicion Index EASI Reference Information: Woody RODRIGUEZ, Greta C, Mishel D, Christopher Bradford.Development and validation of a tool to assist physicians identification of elder abuse: The Elder Abuse Suspicion Index (EASI ). Journal of Elder Abuse and Neglect, 2008; 20 (3): 276-300.
== END 2018-07-20 14:30 | disposition home or self-care (01) ==
LOC: ER 19:28 → MEDSURG 23:51
PROVIDERS: ADMIT Internal Medicine; ATTEND Internal Medicine
DX: J45.41 Moderate persistent asthma with (acute) exacerbation (principal); R09.1 Pleurisy; R09.02 Hypoxemia; G35 Multiple sclerosis; R01.1 Cardiac murmur, unspecified
CPT/HCPCS: 99285 ×2; 96374; 96375; 85025; 82553; 80053; 87400; 84484 ×3; 85379; 85027; 71046; 94640 ×2; 94761; 93005 ×3; 93010; 94760; G0378 ×3; J1885 ×2; J7512 ×2; J2270; 99217; 99220; J2930; J7613

== ENCOUNTER 2018-08-23 18:31 | Emergency (ER) | payer OTHER ==
[2018-08-23] MEDS ORDERED: ONDANSETRON HCL IV 4 MG/2 ML VIAL IVP ONE (18:40)
[2018-08-23] MEDS ORDERED: HYOSCYAMINE SULFATE ODT 0.125 MG TAB.SUBL SL ONE (18:40)
[2018-08-23] MEDS ORDERED: KETOROLAC 30 MG/ML VIAL IVP ONE (18:40)
[2018-08-23] MEDS ORDERED: 0.9 % SODIUM CHLORIDE 1000ML 1,000 ML IV SCH ×2 (18:45→19:30)
--- NOTE | 2018-08-23 18:47 | Emergency Department Record ---
History of Present Illness - General Chief complaint: Nausea, Vomiting, Diarrhea Stated complaint: VOMITING /DIARRHEA Time Seen by Provider: 08/23/18 18:40 Source: Patient Mode of Arrival: Ambulatory Limitations: No limitations - History of Present Illness Initial comments: 47 yo female presents to ED for evaluation of back pain, nausea, vomiting, and loose stools for that began this morning. Patient reports fevers/chills, denies cough symptoms. Patient denies recent ill contacts or change in her diet. Patient reports a history of MS as well as hysterectomy, denies health problems at her baseline. MD complaint: Diarrhea, Nausea, Vomiting Onset/Timin -: Days(s) Associated Abdominal Pain: Yes Location: Diffuse Severity: Moderate Quality: Cramping Consistency: Intermittent Improves with: None Worsens with: None Associated Symptoms: Fever/chills - Related Data Previous Rx's Medication Instructions Recorded Guaifenesin [Mucinex] 1,200 mg PO BID PRN #20 tabcr 07/20/18 Hydrocodone/APAP 5/325Mg [[place] 1 each PO Q4H PRN #12 tab 07/20/18 5Mg/325Mg] Ibuprofen [Motrin 600Mg] 600 mg PO Q8H PRN #40 tablet 07/20/18 Prednisone [Prednisone 20Mg] 20 mg PO BIDWM #6 tab 07/20/18 Hyoscyamine Sulfate [Levsin-Sl] 0.25 mg SL Q8H PRN #15 tab.subl 08/23/18 Ondansetron [Zofran Odt] 4 mg PO Q8H PRN #15 tab.rapdis 08/23/18 Allergies Allergy/AdvReac Type Severity Reaction Status Date / Time Penicillins [PENICILLINS] Allergy Unknown HIVES Verified 07/18/18 19:33 Review of Systems Constitutional: Reports: Chills, Fever, Malaise, Weakness. Denies: Night sweats Eyes: Denies: Eye discharge, Eye pain ENT: Denies: Congestion, Ear pain, Epistaxis Respiratory: Denies: Cough, Dyspnea Cardiovascular: Denies: Chest pain, Dyspnea on exertion Endocrine: Denies: Fatigue, Heat or cold intolerance Gastrointestinal: Reports: Abdominal pain, Diarrhea, Nausea, Vomiting Genitourinary: Denies: Incontinence, Retention Musculoskeletal: Reports: Back pain. Denies: Arthralgia, Gout Skin: Denies: Bruising, Change in color Neurological: Denies: Abnormal gait, Confusion, Headache, Tingling, Tremors Psychiatric: Denies: Anxiety Hematological/Lymphatic: Denies: Anemia, Blood Clots Past Medical History - SOCIAL HISTORY Smoking Status: Never smoker Drug Use: None - RESPIRATORY Hx Respiratory Disorders: Yes Hx Asthma: Yes (in childhood) - CARDIOVASCULAR Hx Cardio Disorders: Yes Comment:: murmur - NEURO Hx Neuro Disorders: Yes Comment:: Multiple Sclerosis- diagnosed 2006 - GI Hx GI Disorders: No - Hx Genitourinary Disorders: No - ENDOCRINE Hx Endocrine Disorders: Yes Hx Diabetes: No Hx Thyroid Disease: Yes - MUSCULOSKELETAL Hx Musculoskeletal Disorders: No - PSYCH Hx Psych Problems: No - HEMATOLOGY/ONCOLOGY Hx Hematology/Oncology Disorders: No Family Medical History Hx Heart Disease: Father, Grandparents Hx Stroke: Grandparents Physical Exam - General General Appearance: Alert, Oriented x3, Cooperative, Moderate distress Limitations: No limitations - Head Head exam: Atraumatic, Normocephalic, Normal inspection Head exam detail: negative: Abrasion, Contusion, Galindo's sign, General tenderness, Hematoma, Laceration - Eye Eye exam: Normal appearance. negative: Conjunctival injection, Periorbital swelling, Periorbital tenderness, Scleral icterus - ENT Ear exam: negative: Auricular hematoma, Auricular trauma Nasal Exam: negative: Active bleeding, Discharge, Dried blood, Sinus tenderness Mouth exam: negative: Drooling, Laceration, Tongue elevation - Neck Neck exam: Normal inspection. negative: Meningismus, Tenderness - Respiratory Respiratory exam: Normal lung sounds bilaterally. negative: Respiratory distress, Rhonchi, Stridor, Wheezes - Cardiovascular Cardiovascular Exam: Regular rate, Normal rhythm, Normal heart sounds - GI/Abdominal GI/Abdominal exam: Soft, Other (Benign abdominal examination, no rebound, guarding, or peritoneal signs.). negative: Rebound, Rigid, Tenderness - Rectal Rectal exam: Deferred - exam: Deferred - Extremities Extremities exam: Normal inspection. negative: Pedal edema, Tenderness - Back Back exam: Denies: CVA tenderness (R), CVA tenderness (L) - Neurological Neurological exam: Alert, Normal gait, Oriented X3 - Psychiatric Psychiatric exam: Normal affect, Normal mood - Skin Skin exam: Normal color. negative: Abrasion Type of lesion: negative: abrasion Course - Reevaluation(s) Reevaluation #1: 08/23/18 19:17 Laboratory studies were reviewed and are grossly unremarkable for an acute process. UA pending at this time. Reevaluation #2: 08/23/18 20:14 UA was reviewed and appears negative for infection. Patient is tolerating PO and reports that she is feeling much better. repeat abdominal examination continues to be benign. Patient appears stable for discharge at this time with treatment for her nausea/ vomiting and abdominal cramping. Medical Decision Making - Lab Data Result diagrams: 08/23/18 18:40 08/23/18 18:59 Disposition Disposition: Discharge Clinical Impression: Abdominal cramping Nausea & vomiting Qualifiers: Vomiting type: unspecified Vomiting Intractability: non-intractable Qualified Code(s): R11.2 - Nausea with vomiting, unspecified Disposition: Home, Self-Care Condition: (2) Stable Instructions: Acute Nausea and Vomiting (ED) Additional Instructions: Return to ED if your symptoms worsen or if you have any concerns. Levsin, Zofran as directed. Follow-up with your family doctor in 3-5 days as directed. Prescriptions: Hyoscyamine Sulfate [Levsin-Sl] 0.25 mg SL Q8H PRN #15 tab.subl PRN Reason: Abdominal Pain Ondansetron [Zofran Odt] 4 mg PO Q8H PRN #15 tab.rapdis PRN Reason: Nausea/Vomiting Forms: Patient Portal Access Time of Disposition: 20:16 Quality - Quality Measures Quality Measures: N/A - Blood Pressure Screening Does Patient Have Any of the Following: No Blood Pressure Classification: Pre-Hypertensive BP Reading Systolic Measurement: 122 Diastolic Measurement: 76 Screening for High Blood Pressure: < Pre-Hypertensive BP, F/U Documented > [ [id number]] Pre-Hypertensive Follow-up Interventions: Referral to alternative/primary care provider.
[2018-08-23 18:55] LABS: BASO % 0.1 % (0-6); EOS % 0.2 % (0-6); HEMATOCRIT 41.8 % (35.0-47.0); HEMOGLOBIN 13.7 gm/dl (11.6-16.0); LYMPH % 9.3 % (16-45); MEAN CELL VOLUME 90.9 fl (81-97); MEAN CORPUSCULAR HEMOGLOBIN 29.8 pg (27-33); MEAN CORPUSCULAR HGB CONC 32.8 g/dl (32-36); MEAN PLATELET VOLUME 10.9 fl (7.4-10.4); MONO % 5.1 % (0-9); PLATELET COUNT 326 K/uL (130-400); RED CELL DISTRIBUTION WIDTH 13.8 % (11.5-14.5); WHITE BLOOD COUNT W/O DIFF 8.3 K/uL (4.2-12.2)
[2018-08-23 19:08] LABS: BLOOD UREA NITROGEN 11 mg/dL (6-20); CREATININE 0.5 mg/dL (0.5-0.9); EST GLOMERULAR FILTRATION RATE > 60 mL/min
[2018-08-23 19:09] LABS: LIPASE 27 U/L (13-60); TOTAL PROTEIN 7.3 g/dL (6.6-8.7)
[2018-08-23 19:10] LABS: INFLUENZA A NEGATIVE (NEGATIVE); INFLUENZA B NEGATIVE (NEGATIVE)
[2018-08-23 19:11] LABS: GLUCOSE,RANDOM 131 mg/dL (74-109)
[2018-08-23 19:14] LABS: ALB/GLOB RATIO 1.5 (1.1-1.8); ALBUMIN 4.4 g/dL (4.0-5.0); ALKALINE PHOSPHATASE 105 U/L (35-104); ALT/SGPT 27 U/L (<33); AST/SGOT 21 U/L (10.0-35.0)
[2018-08-23 19:53] LABS: URINE APPEARANCE CLEAR; URINE BILIRUBIN NEGATIVE (NEGATIVE); URINE BLOOD NEGATIVE (NEGATIVE); URINE COLOR YELLOW; URINE GLUCOSE (UA) NEGATIVE (NEGATIVE); URINE KETONE 15 mg/dL (NEGATIVE); URINE LEUKOCYTE ESTERASE TRACE (NEGATIVE); URINE NITRITE NEGATIVE (NEGATIVE); URINE PROTEIN NEGATIVE (NEGATIVE); URINE UROBILINOGEN 0.2 E.U./dL (0.20 - 1.00)
[2018-08-23 19:59] LABS: URINE BACTERIA FEW; URINE EPITHELIAL CELLS 0 - 2 (FEW); URINE RBC NONE SEEN (NONE SEEN); URINE WBC 0 - 2 (0-2/hpf)
[2018-08-23 20:00] LABS: URINE MUCUS LIGHT
== END 2018-08-23 20:36 | disposition home or self-care (01) ==
LOC: ER 18:31
DX: R11.2 Nausea with vomiting, unspecified (principal); R19.7 Diarrhea, unspecified; R10.9 Unspecified abdominal pain; G35 Multiple sclerosis
CPT/HCPCS: 99284 ×2; 96374; 96375; 96361; 83690; 80053; 81001; 87400; 85027; J1980; J1885; J2405; J7030